=== PATIENT | female | born 1950 | race American Indian/Alaskan Native ===

== ENCOUNTER 2022-07-09 17:42 | Emergency (ER) | payer MEDICARE ==
[2022-07-10] MEDS ORDERED: predniSONE 20 MG TAB PO ONE (00:49)
[2022-07-10] MEDS ORDERED: FAMOTIDINE 20 MG TAB PO ONE (00:49)
[2022-07-10] MEDS ORDERED: diphenhydrAMINE 25 MG CAP PO ONE (00:49)
--- NOTE | 2022-07-10 01:15 | Emergency Department Report ---
ED General Adult HPI - General Chief complaint: Skin Rash Stated complaint: ALLERGY REACTION Time Seen by Provider: 07/10/22 00:48 Source: patient Mode of arrival: Ambulatory Limitations: No Limitations - History of Present Illness Initial comments: Patient 71-year-old female who presents for rash to trunk x1 month intermittently. States dry itchy. States result of allergic reaction to medications given in hospital 1 month ago. Symptoms include itching and dry flaky skin. Patient denies fevers or chills no shortness of breath no wheezing or stridor patient denies history of asthma. Denies other symptoms. - Related Data Previous Rx's Medication Instructions Recorded Last Taken Type Aspirin 325 mg PO QDAY #30 tablet 12/12/15 Unknown Rx AtorvaSTATin [Lipitor] 40 mg PO QHS #30 tablet 12/12/15 Unknown Rx Ferrous Sulfate [Feosol 325 MG tab] 325 mg PO QDAY #30 tablet 12/12/15 Unknown Rx Folic Acid [Folvite] 1 mg PO QDAY #30 tablet 12/12/15 Unknown Rx Magnesium Oxide [Mag-Ox] 400 mg PO QDAY #30 tablet 12/12/15 Unknown Rx Metoprolol [Lopressor TAB] 25 mg PO BID #30 tablet 12/12/15 Unknown Rx Nicotine [Habitrol] 14 mg TD QDAY #30 patch 12/12/15 Unknown Rx Pantoprazole [Protonix TAB] 40 mg PO QDAY #30 tablet 12/12/15 Unknown Rx Thiamine [Vitamin B-1] 100 mg PO QDAY #30 tablet 12/12/15 Unknown Rx amLODIPine 5 mg PO QDAY #30 tablet 12/12/15 Unknown Rx levETIRAcetam [Keppra TAB] 1,000 mg PO BID #60 tablet 12/12/15 Unknown Rx risperiDONE [RisperDAL] 1 mg PO BID #60 tablet 12/12/15 Unknown Rx Triamcinolone Aceton 0.1% (Nf) 1 applic TP BID #1 tube 07/10/22 Unknown Rx [Kenalog (NF)] diphenhydrAMINE [Benadryl CAP] 25 mg PO Q8HR PRN #30 capsule 07/10/22 Unknown Rx predniSONE [Deltasone] 20 mg PO QDAY 5 Days #5 tab 07/10/22 Unknown Rx Allergies Allergy/AdvReac Type Severity Reaction Status Date / Time No Known Allergies Allergy Unverified 11/28/15 15:26 ED Review of Systems ROS: Stated complaint: ALLERGY REACTION Other details as noted in HPI Constitutional: denies: chills, fever Eyes: denies: eye pain, eye discharge, vision change ENT: denies: ear pain, throat pain Respiratory: denies: cough, shortness of breath, wheezing Cardiovascular: denies: chest pain, palpitations Endocrine: no symptoms reported Gastrointestinal: as per HPI. denies: nausea, vomiting Genitourinary: denies: urgency, dysuria, discharge Musculoskeletal: denies: back pain, joint swelling, arthralgia Skin: rash (Dry flaky rough), pruritus Neurological: denies: headache, weakness, paresthesias Psychiatric: denies: anxiety, depression Hematological/Lymphatic: denies: easy bleeding, easy bruising ED Past Medical Hx - Past Medical History Hx Hypertension: Yes Hx Heart Attack/AMI: No Hx Diabetes: No Hx Arthritis: No Hx HIV: No - Surgical History Hx Pacemaker: No - Social History Smoking Status: Current Every Day Smoker - Medications Home Medications: Home Medications Medication Instructions Recorded Confirmed Last Taken Type Aspirin 325 mg PO QDAY #30 tablet 12/12/15 Unknown Rx AtorvaSTATin [Lipitor] 40 mg PO QHS #30 tablet 12/12/15 Unknown Rx Ferrous Sulfate [Feosol 325 MG tab] 325 mg PO QDAY #30 tablet 12/12/15 Unknown Rx Folic Acid [Folvite] 1 mg PO QDAY #30 tablet 12/12/15 Unknown Rx Magnesium Oxide [Mag-Ox] 400 mg PO QDAY #30 tablet 12/12/15 Unknown Rx Metoprolol [Lopressor TAB] 25 mg PO BID #30 tablet 12/12/15 Unknown Rx Nicotine [Habitrol] 14 mg TD QDAY #30 patch 12/12/15 Unknown Rx Pantoprazole [Protonix TAB] 40 mg PO QDAY #30 tablet 12/12/15 Unknown Rx Thiamine [Vitamin B-1] 100 mg PO QDAY #30 tablet 12/12/15 Unknown Rx amLODIPine 5 mg PO QDAY #30 tablet 12/12/15 Unknown Rx levETIRAcetam [Keppra TAB] 1,000 mg PO BID #60 tablet 12/12/15 Unknown Rx risperiDONE [RisperDAL] 1 mg PO BID #60 tablet 12/12/15 Unknown Rx Triamcinolone Aceton 0.1% (Nf) 1 applic TP BID #1 tube 07/10/22 Unknown Rx [Kenalog (NF)] diphenhydrAMINE [Benadryl CAP] 25 mg PO Q8HR PRN #30 capsule 07/10/22 Unknown Rx predniSONE [Deltasone] 20 mg PO QDAY 5 Days #5 tab 07/10/22 Unknown Rx ED Physical Exam - General Limitations: No Limitations General appearance: alert, in no apparent distress - Head Head exam: Present: normocephalic, normal inspection - Eye Eye exam: Present: PERRL, EOMI. Absent: conjunctival injection, nystagmus Pupils: Present: normal accommodation - ENT ENT exam: Present: normal orophraynx, mucous membranes moist - Neck Neck exam: Present: normal inspection, full ROM. Absent: tenderness, lymphadenopathy - Respiratory Respiratory exam: Present: normal lung sounds bilaterally. Absent: respiratory distress, wheezes, stridor, prolonged expiratory - Cardiovascular Cardiovascular Exam: Present: regular rate, normal rhythm, normal heart sounds. Absent: systolic murmur, diastolic murmur, rubs, gallop - GI/Abdominal GI/Abdominal exam: Present: soft, normal bowel sounds - Rectal Rectal exam: Present: deferred - Extremities Exam Extremities exam: Present: normal inspection, full ROM, normal capillary refill - Back Exam Back exam: Present: normal inspection, full ROM. Absent: tenderness - Neurological Exam Neurological exam: Present: alert, oriented X3, CN II-XII intact, normal gait - Expanded Neurological Exam Expanded Patient oriented to: Present: person, place, time Speech: Present: fluid speech Best Eye Response ([place]): (4) open spontaneously Best Motor Response ([place]): (6) obeys commands Best Verbal Response ([place]): (5) oriented [place] Total: 15 - Psychiatric Psychiatric exam: Present: normal affect, normal mood - Skin Skin exam: Present: warm, dry, intact, normal color, rash (Dry flaky rough no weeping no erythema no fever), urticaria ED Course Vital Signs 07/09/22 19:21 Temperature 98.4 F Pulse Rate 70 Respiratory 16 Rate Blood Pressure 148/60 [Right] O2 Sat by Pulse 98 Oximetry ED Medical Decision Making - Medical Decision Making There is no shortness of breath no wheezing no stridor no chest pain no dizziness or lightheadedness. No hives. No respiratory distress. Rash consistent with eczema plan DC to home with prescriptions. Follow-up with primary care doctor in 2 to 3 days. Return to emergency department should symptoms worsen. Patient verbalized agreement and understanding with discharge plan. Patient DC'd home in stable condition at this time. Critical care attestation.: If time is entered above; I have spent that time in minutes in the direct care of this critically ill patient, excluding procedure time. ED Disposition Clinical Impression: Dermatitis Disposition: 01 HOME / SELF CARE / HOMELESS Is pt being admited?: No Does the pt Need Aspirin: No Condition: Stable Instructions: Eczema Additional Instructions: Take medications as prescribed, follow-up with your doctor in 2 to 3 days. Return to emergency department should symptoms worsen. Prescriptions: diphenhydrAMINE [Benadryl CAP] 25 mg PO Q8HR PRN #30 capsule PRN Reason: Itching predniSONE [Deltasone] 20 mg PO QDAY 5 Days #5 tab Triamcinolone Aceton 0.1% (Nf) [Kenalog (NF)] 1 applic TP BID #1 tube Referrals: NIA SCOTT MD [Staff Physician] - 3-5 Days Time of Disposition: 01:17
[2022-07-10 01:51] VITALS: BP 142/66
== END 2022-07-10 01:46 | disposition home or self-care (01) ==
LOC: ED 17:42
DX: L30.9 Dermatitis, unspecified (principal); I10 Essential (primary) hypertension; F17.200 Nicotine dependence, unspecified, uncomplicated
CPT/HCPCS: 99282